=== PATIENT | female | born 1985 | race Caucasian/White ===

== ENCOUNTER 2016-05-21 10:04 | Emergency (ER) | payer OTHER ==
[2016-05-21 10:46] VITALS: BP 115/69
--- NOTE | 2016-05-21 11:12 | UC ---
Back Pain HPI - HPI Summary HPI Summary: Sudden pain in R upper back, next to/underneath shoulder blade 2-3 hours ago with tingling and numbness radiating to R arm. Has had this happen in different places in her back before. Denies twisting, fall, contusion, or other trauma. No hx of sx or fx in that area. Pt had arms up doing her hair at the time. - History of Current Complaint Chief Complaint: UC Stated Complaint: BACK INJURY Time Seen by Provider: 05/21/16 10:34 Hx Obtained From: Patient Hx Last Menstrual Period: mid april ?: No Onset/Duration: Sudden Onset Timing: Constant Severity Initially: Moderate Severity Currently: Moderate Back Pain: Is Discrete @, Radiates To - R arm Character: Sharp, Spasmodic, Stiffness Aggravating: Movement Alleviating: Rest Associated Signs And Symptoms: Positive: Numbness, Tingling. Negative: Swelling , Redness, Abdominal Pain, Bladder Incontinence, Bowel Incontinence - Allergies/Home Medications Allergies/Adverse Reactions: Allergies Allergy/AdvReac Type Severity Reaction Status Date / Time No Known Allergies Allergy Verified 05/21/16 10:32 Home Medications: Home Medications Bcp 1 cap PO DAILY 05/21/16 [History Confirmed 05/21/16] Cholecalciferol [Vitamin D] 1,000 unit PO DAILY 05/21/16 [History Confirmed 11/29] Levothyroxine TAB* [Synthorid 112 MCG TAB*] 112 mcg PO DAILY 05/21/16 [History Confirmed 05/21/16] Methylphenidate HCl [Ritalin LA] 30 mg PO DAILY 05/21/16 [History Confirmed 11/29] PMH/Surg Hx/FS Hx/Imm Hx Endocrine History Of: Reports: Thyroid Disease - Surgical History Surgical History: None - Family History Known Family History: Negative: Blood Disorder - Social History Occupation: Employed Full-time Alcohol Use: Rare Substance Use Type: None Smoking Status (MU): Former Smoker Type: eCigarettes - Immunization History Most Recent Influenza Vaccination: utd Most Recent Tetanus Shot: utd Review of Systems Constitutional: Negative Skin: Negative Eyes: Negative ENT: Negative Respiratory: Negative Cardiovascular: Negative Gastrointestinal: Negative Genitourinary: Negative Motor: Negative Neurovascular: Negative Musculoskeletal: Myalgia Neurological: Negative Psychological: Negative All Other Systems Reviewed And Are Negative: Yes Physical Exam Triage Information Reviewed: Yes Appearance: Well-Appearing, Pain Distress - with movement and head turning Vital Signs: Initial Vital Signs Temp 98.7 F 05/21/16 10:35 Pulse 67 05/21/16 10:35 Resp 18 05/21/16 10:35 BP 115/69 05/21/16 10:35 Pulse Ox 99 05/21/16 10:35 Vital Signs Reviewed: Yes Eye Exam: Normal Eyes: Positive: Conjunctiva Clear ENT Exam: Normal ENT: Positive: Normal ENT inspection, Hearing grossly normal, Pharynx normal, TMs normal Dental Exam: Normal Neck: Positive: No Lymphadenopathy, Tenderness @ - R upper shoulder blade Respiratory Exam: Normal Respiratory: Positive: Chest non-tender, Lungs clear, Normal breath sounds, No respiratory distress, No accessory muscle use Cardiovascular Exam: Normal Cardiovascular: Positive: RRR, No Murmur Musculoskeletal: Positive: Strength Intact, ROM Limited @ - head/neck R shoulder Neurological: Positive: Alert, Muscle Tone Normal Psychological Exam: Normal Skin Exam: Normal Back Pain Course/Dx - Differential Dx/Diagnosis Provider Diagnoses: R upper back strain Discharge - Discharge Plan Condition: Stable Disposition: HOME Prescriptions: Cyclobenzaprine (NF) [Cyclobenzaprine 5 MG (NF)] 5 - 10 mg PO TID PRN #30 tab PRN Reason: Pain Ketorolac TAB (NF) [Toradol TAB (NF)] 10 mg PO TID #15 tab Patient Education Materials: Trigger Point Pain (ED), Muscle Strain (ED) Referrals: Chente Coon MD [Primary Care Provider] - 7 Days Additional Instructions: Apply warm packs for 20-30 minutes at a time. If you have some improvement overnight you can start the gentle [id number] exercises I showed you tomorrow. If you are having weakness, worsening pain, or other worrisome signs, please come back right away.
== END 2016-05-21 11:07 | disposition home or self-care (01) ==
LOC: UCEAST 10:04
DX: S29.012A Strain of muscle and tendon of back wall of thorax, initial encounter (principal); X58.XXXA Exposure to other specified factors, initial encounter; Y93.9 Activity, unspecified; Y92.9 Unspecified place or not applicable; E07.9 Disorder of thyroid, unspecified; Z87.891 Personal history of nicotine dependence
CPT/HCPCS: 99201; G0463

== ENCOUNTER 2018-09-29 23:55 | Emergency (ER) | payer OTHER ==
--- NOTE | 2018-09-30 01:32 | ED ---
Upper Extremity Pain - HPI Summary HPI Summary: Patient complains of left wrist pain after being hit in the left wrist by a thrown softball while playing softball today. Denies any other pain injury symptoms. Patient states she continued to play, but wanted to make sure nothing was broken. Patient took ibuprofen at 22:30 with some improvement in symptoms. - History of Current Complaint Chief Complaint: EDExtremityUpper Stated Complaint: POSS BROKEN LEFT WRIST PER PT Time Seen by Provider: 09/30/18 01:03 Hx Obtained From: Patient Hx Last Menstrual Period: april Mechanism Of Injury: Blunt Trauma Onset/Duration: Started Hours Ago Timing: Constant Severity Initially: Moderate Severity Currently: Moderate Pain Location: Wrist Character: Aching, Throbbing Aggravating Factor(s): Movement Alleviating Factor(s): OTC Meds Associated Signs & Symptoms: Positive: Negative - Allergies/Home Medications Allergies/Adverse Reactions: Allergies Allergy/AdvReac Type Severity Reaction Status Date / Time No Known Allergies Allergy Verified 05/21/16 10:32 PMH/Surg Hx/FS Hx/Imm Hx Endocrine/Hematology History: Reports: Hx Thyroid Disease Cardiovascular History: Denies: Hx Pacemaker/ICD History: Denies: Hx Dialysis Sensory History: Denies: Hx Legally Blind EENT History: Denies: Hx Deafness Neurological History: Denies: Hx Developmental Delay Infectious Disease History: No Infectious Disease History: Denies: Hx Clostridium Difficile, Hx of Known/Suspected MRSA, Hx Shingles, History Other Infectious Disease, Traveled Outside the [place] in Last 30 Days - Family History Known Family History: Negative: Blood Disorder - Social History Alcohol Use: Rare Substance Use Type: Reports: None Hx Tobacco Use: Yes Smoking Status (MU): Former Smoker Type: eCgavino Review of Systems Constitutional: Negative Eyes: Negative ENT: Negative Cardiovascular: Negative Respiratory: Negative Gastrointestinal: Negative Genitourinary: Negative Musculoskeletal: Other Skin: Negative Neurological: Negative Psychological: Normal All Other Systems Reviewed And Are Negative: Yes Physical Exam - Summary Physical Exam Summary: Mild swelling to lateral surface of left wrist. No ecchymosis, erythema, deformity, extra warmth noted. Full range of motion of left wrist. 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 PMS intact distally. Normal elbow exam. Triage Information Reviewed: Yes Vital Signs On Initial Exam: Initial Vitals Temp Pulse Resp BP Pulse Ox 98.3 F 78 16 106/86 100 07/18/19 23:58 09/29/18 23:58 09/29/18 23:58 09/29/18 23:58 09/29/18 23:58 Vital Signs Reviewed: Yes Appearance: Positive: Well-Appearing Skin: Positive: Warm Head/Face: Positive: Normal Head/Face Inspection Eyes: Positive: Normal Neck: Positive: Supple Respiratory/Lung Sounds: Positive: Clear to Auscultation Cardiovascular: Positive: Normal Abdomen Description: Positive: Nontender Musculoskeletal: Positive: Normal Neurological: Positive: Normal Psychiatric: Positive: Normal AVPU Assessment: Alert - [place] Coma Scale Best Eye Response: 4 - Spontaneous Best Motor Response: 6 - Obeys Commands Best Verbal Response: 5 - Oriented Coma Scale Total: 15 Diagnostics - Vital Signs Vital Signs Temp Pulse Resp BP Pulse Ox 09/29/18 23:58 98.3 F 78 16 106/86 100 - Laboratory Lab Statement: Any lab studies that have been ordered have been reviewed, and results considered in the medical decision making process. Course/Dx - Course Course Of Treatment: Patient complains of left wrist pain after being hit in the left wrist by a thrown softball while playing softball today. Denies any other pain injury symptoms. Patient states she continued to play, but wanted to make sure nothing was broken. Patient took ibuprofen at 22:30 with some improvement in symptoms. Vital signs within normal limits. X-ray negative for fracture. Velcro splint applied by this provider for wrist injury. - Diagnoses Provider Diagnoses: Contusion of wrist, left Discharge - Sign-Out/Discharge Documenting (check all that apply): Patient Departure Patient Received Moderate/Deep Sedation with Procedure: No - Discharge Plan Condition: Stable Disposition: HOME Patient Education Materials: Wrist Injury (ED) Referrals: Chente Coon MD [Primary Care Provider] - Deepa Reed MD [Medical Doctor] - Additional Instructions: Ice, ibuprofen and rest for left wrist pain. If symptoms do not improve in a week follow-up with orthopedics Dr. Reed for further evaluation. - Billing Disposition and Condition Condition: STABLE Disposition: Home
[2018-09-30 02:28] VITALS: BP 98/46
== END 2018-09-30 02:27 | disposition home or self-care (01) ==
LOC: ED 23:55
DX: S60.212A Contusion of left wrist, initial encounter (principal); W21.07XA Struck by softball, initial encounter; Y92.9 Unspecified place or not applicable; E07.9 Disorder of thyroid, unspecified; Z87.891 Personal history of nicotine dependence
CPT/HCPCS: 99281

== ENCOUNTER 2019-01-10 11:24 | Emergency (ER) | payer OTHER ==
--- OUTSIDE RECORDS SUMMARY | 2019-01-10 11:31 | XMS REPORT | Continuity of Care Document ---
:1985 External Reference #:[id number] Author Name Crystal KarDO betina Address [address] [place] [id number] Problems Active Problems Provider Date Adult health examination Onset: 09/28/2016 Cervical intraepithelial neoplasia grade 1 Onset: 05/21/2014 Inactive Problems Anxiety Onset: 07/28/2018 Inactive: 07/28/2018 Bacterial vaginosis Onset: 07/28/2018 Inactive: 07/28/2018 Hypothyroidism Onset: 07/28/2018 Inactive: 07/28/2018 Seasonal allergy Onset: 07/28/2018 Inactive: 07/28/2018 Skin lesion Onset: 07/28/2018 Inactive: 07/28/2018 Weight gain Onset: 07/28/2018 Inactive: 07/28/2018 Social History Type Date Description Comments Sex Unknown Allergies, Adverse Reactions, Alerts Active Allergies Reaction Severity Comments Date Celexa Worse depression Moderate 11/18/2018 Flagyl sick 11/18/2018 Wellbutrin Stimulating effect Moderate 11/18/2018 Medications Active Medications SIG Qnty Indications Ordering Date Provider Vandazole Vaginal; Insert 70units Unknown 10/28/2018 0.75% Gel One Applicator Full Into The Vagina Twice Weekly Methylphenidate Take One Tablet 30tabs Chente Coon MD 10/03/2018 Hydrochloride ER By Mouth Every 27mg Day Maximum Daily Tablets ER 24HR Dose = One Tablet Erin Allergy 1 daily Oral 90tabs Unknown 07/28/2018 180mg Tablets Vitamin B-12 1 daily Oral Unknown 07/28/2018 1000mcg Tablets Azelastine HCL ophthalmic; 1 1units Crystal 05/16/2018 (Ophthalmic) drop each eye DO Eric 0.05% twice daily Solution Fluticasone Propionate 2 sprays daily 16units Unknown 05/16/2018 Nasal 50mcg/Act Suspension Levonorgestrel/Ethinyl Take One Tablet 84tabs Chente Coon MD 04/06/2018 Estradiol By Mouth Every 0.1-20mg-mcg Day Tablets Buspirone HCL Oral; Take One 60tabs Unknown 08/16/2017 10mg Tablet By Mouth Tablets Twice A Day Xanax 1 three times 30tabs Crystal 06/17/2017 0.5mg Tablets daily oral as Josebetina, DO needed Levothyroxine Sodium 1 daily oral 90tabs Chente Coon MD 150mcg Tablets Medications Administered in Office Medication SIG Qnty Indications Ordering Provider Date TB Intradermal Test Unknown 10/20/2016 Injection TB Intradermal Test Unknown 11/17/2013 Injection Immunizations CPT Code Status Date Vaccine Lot # [id number] Given 12/14/2018 Flu < 65 years 19142 Given 12/03/2017 Influenza Virus Vaccine, Quadrivalent, Split Virus, Im Use 0.5ML 96021 Given 12/03/2017 Flu < 65 years 68972 Given 12/03/2017 Influenza Virus Vaccine, Quadrivalent, Split, Preservative Free 16439 Given 12/03/2017 Flumist 85695 Given 12/03/2017 Flu High Dose 44930 Given 12/03/2017 Influenza Virus Vaccine, Split, Preserv Free, Intradermal Use 17541 Given 11/24/2016 Influenza Virus Vaccine, Quadrivalent, Split Virus, Im Use 0.5ML 82844 Given 11/24/2016 Flu < 65 years 53232 Given 11/24/2016 Influenza Virus Vaccine, Quadrivalent, Split, Preservative Free 71711 Given 11/24/2016 Flumist 24748 Given 11/24/2016 Flu High Dose 92178 Given 11/24/2016 Influenza Virus Vaccine, Split, Preserv Free, Intradermal Use 13325 Given 01/22/2016 Influenza Virus Vaccine, Split, Preserv Free, Intradermal Use 21731 Given 01/22/2016 Flu High Dose 17507 Given 01/22/2016 Flumist 85783 Given 01/22/2016 Influenza Virus Vaccine, Quadrivalent, Split, Preservative Free 76811 Given 01/22/2016 Flu < 65 years 02261 Given 01/22/2016 Influenza Virus Vaccine, Quadrivalent, Split Virus, Im Use 0.5ML 42687 Given 12/21/2014 Tdap - Boostrix/Adacel 79766 Given 12/21/2014 Influenza Virus Vaccine, Quadrivalent, Split Virus, Im Use 0.5ML 77305 Given 12/21/2014 Flu < 65 years 49798 Given 12/21/2014 Influenza Virus Vaccine, Quadrivalent, Split, Preservative Free 54273 Given 12/21/2014 Flumist 19971 Given 12/21/2014 Flu High Dose 80504 Given 03/06/2014 Influenza Virus Vaccine, Quadrivalent, Split Virus, Im Use 0.5ML 66162 Given 03/06/2014 Flu < 65 years 24305 Given 03/06/2014 Influenza Virus Vaccine, Quadrivalent, Split, Preservative Free 32854 Given 03/06/2014 Flumist 93443 Given 03/06/2014 Flu High Dose Vital Signs Date Vital Result Comment 01/05/2019 2:38pm BP Systolic 118 mmHg BP Diastolic 60 mmHg Weight 175.00 lb Heart Rate 75 /min Body Temperature 98.2 F O2 % BldC Oximetry 98 % 07/28/2018 9:31am BP Systolic 102 mmHg Weight 172.00 lb Heart Rate 71 /min Body Temperature 98.8 F O2 % BldC Oximetry 97 % Results Test Acquired Date Facility Test Result H/L Range Note TSH 10/28/2018 N2N/CCD Import TSH 1.59 mcIU/mL 0.34-5.60 mcIU/mL TSH 07/28/2018 N2N/CCD Import TSH 2.44 mcIU/mL 0.34-5.60 mcIU/mL Procedures Description No Information Available Medical Devices Description No Information Available Encounters Type Date Location Provider Dx Diagnosis Office Visit 01/05/2019 [facility], F41.1 Generalized anxiety 2:30p disorder J30.2 Other seasonal allergic rhinitis B96.89 Oth bacterial agents as the cause of diseases classd elswhr Z68.30 Body mass index (BMI) 30.0-30.9, adult Assessments Date Code Description Provider 01/05/2019 F41.1 Generalized anxiety disorder [facility], 01/05/2019 J30.2 Other seasonal allergic rhinitis [facility], 01/05/2019 B96.89 Gardnerella vaginitis [facility], DO 01/05/2019 Z68.30 Body mass index (BMI) 30.0-30.9, adult Crystal Reyes, Plan of Treatment 01/05/2019 - Crystal Reyes, DOF41.1 Generalized anxiety disorderComments: Recent increase in symptoms with no known causePlan is continue BuspironeOk to use the Xanax prn On Methylphenidate for difficulty concentrating and this does not worsen her anxiety at current doseJ30.2 Other seasonal allergic rhinitisComments:Discussed using the flonase regularly again as this will likely be helpful and continue oral antihistamine and eye drops as wellB96.89 Gardnerella vaginitisComments:Chronic BV that seems to come and go Long discussion about IUD - if HVAC ENGINEER recommending, certainly worth giving it a tryShe is very concerned that it will mean her acne will return (if goes off estrogen that is in the pill) and we discussed that we can address if comes upAlso concerned about bleeding - can also be addressedNervous about procedure - described it to her and advised she could also take some Xanax prior as long as someone drives her - she is really going to consider getting it doneZ68.30 Body mass index (BMI) 30.0-30.9, adultComments:Long discussion about this She will begin to work out regularly and will continue to try to make healthy choices for her foodAllComments:>25min visit with more than 50% of the time spent counseling Functional Status Description No Information Available Mental Status Description No Information Available Referrals Description No Information Available
[2019-01-10 12:02] VITALS: BP 111/74
--- NOTE | 2019-01-10 12:20 | UC ---
Eye Complaint HPI - HPI Summary HPI Summary: 33 year old female who has had red eyes over a few days with crusty drainage this morning. She states she normally has allergies and has been using her allergy drops for her eyes without improvement. She denies any other symptoms and no visual changes. - History of Current Complaint Chief Complaint: UCEye Stated Complaint: EYE ISSUE Time Seen by Provider: 01/10/19 12:15 Hx Obtained From: Patient Hx Last Menstrual Period: no period , skips placebo - on pill ?: No Onset/Duration: Gradual Onset Timing: Constant Severity Initially: Mild Severity Currently: Mild Pain Intensity: 0 Location of Injury: Other - No injury Aggravating Factor(s): Nothing Alleviating Factor(s): Nothing, Other - Patient has been using her allergy eyedrops without improvement. Associated Signs And Symptoms: Positive: Drainage (Purulent) - This morning she had some dried crusty drainage and both eyes stuck shut. - Allergies/Home Medications Allergies/Adverse Reactions: Allergies Allergy/AdvReac Type Severity Reaction Status Date / Time No Known Allergies Allergy Verified 01/10/19 11:55 Home Medications: Home Medications Cyanocobalamin TAB* [Vitamin B12 TAB*] 500 mcg PO DAILY 01/10/19 [History Confirmed 01/10/19] Fexofenadine (NF) [Erin (NF)] 60 mg PO DAILY 01/10/19 [History Confirmed ] busPIRone TAB* [Buspar TAB*] 10 mg PO DAILY 01/10/19 [History Confirmed 01/10/19 ] PMH/Surg Hx/FS Hx/Imm Hx Previously Healthy: Yes Endocrine History: Thyroid Disease Cardiovascular History: Other - Tachycardia - Surgical History Surgical History: None - Family History Known Family History: Negative: Blood Disorder - Social History Alcohol Use: Rare Substance Use Type: None Smoking Status (MU): Former Smoker Type: eCigarettes - Immunization History Most Recent Influenza Vaccination: utd Most Recent Tetanus Shot: utd Review of Systems All Other Systems Reviewed And Are Negative: Yes Eyes: Positive: Drainage - Left eye had crusty drainage this morning., Eye Redness - Eyes are injected the left worse than the right. Is Patient Immunocompromised?: No Physical Exam Triage Information Reviewed: Yes Appearance: Well-Appearing, No Pain Distress, Well-Nourished Vital Signs: Initial Vital Signs Temp 98.8 F 01/10/19 11:58 Pulse 65 01/10/19 11:58 Resp 16 01/10/19 11:58 BP 111/74 01/10/19 11:58 Pulse Ox 99 01/10/19 11:58 Vital Signs Reviewed: Yes Eyes: Positive: Conjunctiva Inflamed - Left conjunctivae are mildly inflamed, right conjunctiva are normal. Both sclera are injected a left worse in the right., Discharge - No active drainage at this point time. ENT: Positive: Hearing grossly normal, Pharynx normal, TMs normal, Uvula midline Eye Complaint Course/Dx - Course Course Of Treatment: The patient is comfortable here. She is going to try tobramycin ophthalmic drops but definite follow-up with the pizza chef in 2 days if no improvement. She does not work contact lenses. I informed her this may still be an allergic response however to try the antibiotic drops and definite follow- up with the pizza chef if no improvement. - Differential Dx/Diagnosis Provider Diagnosis: Bilateral conjunctivitis Discharge ED - Sign-Out/Discharge Documenting (check all that apply): Patient Departure All imaging exams completed and their final reports reviewed: No Studies - Discharge Plan Condition: Good Disposition: HOME Prescriptions: Tobramycin 0.3% OPHTH.MELISSA* 1 drop BOTH EYES Q4H 7 Days #1 btl Patient Education Materials: Conjunctivitis (ED) Referrals: Crystal Reyes DO [Primary Care Provider] - Additional Instructions: Avoid rubbing your eyes and if you do wash your hands. Follow-up with an pizza chef in 2 days if no improvement. - Billing Disposition and Condition Condition: GOOD Disposition: Home
== END 2019-01-10 12:33 | disposition home or self-care (01) ==
LOC: UCEAST 11:24
DX: H10.9 Unspecified conjunctivitis (principal); Z87.891 Personal history of nicotine dependence
CPT/HCPCS: 99212; G0463